=== PATIENT | male | born 1955 | race Caucasian/White ===

== ENCOUNTER → 2019-06-05 | Outpatient (CLI) | payer MEDICARE, OTHER ==
[~2019-06-05] MED LIST: BARIUM SULFATE 40% (APPLE) 148 GM PWD. PO ONE
--- NOTE | 2019-06-05 14:01 | RAD ---
VIDEO FLUOROSCOPIC SWALLOWING STUDY History: Dysphagia, oral pharyngeal phase. History of pneumonia. Total fluoroscopic time: 3.5 minutes seconds. Total fluoroscopic spot images: None saved. Findings: A video fluoroscopic swallowing study was performed with the speech pathologist present. Multiple episodes of deep transient laryngeal penetration with thin liquids was seen. One episode extended down to the cords but not below it. Therefore, no laryngeal aspiration was seen. No laryngeal residue was evident. Mild vallecular residue was evident but cleared with a subsequent swallow. Significant diffuse esophageal dysmotility was seen and therefore, the contrast bolus did not clear from the esophagus. There was one episode of esophageal dysmotility which resulted in reflux of the contrast bolus back up into the cervical esophagus just below the level of the larynx. This study was performed in the sitting upright position. Complete esophagram may be helpful for further evaluation. IMPRESSION: Transient laryngeal penetration without aspiration. Full report to follow by speech pathology. Significant esophageal dysmotility. Complete esophagram may be helpful for further evaluation. Electronically signed by: Sudhakar Gutierres MD (06/05/2019 1:58 PM) [facility]
== END | disposition home or self-care (01) ==
LOC: RAD 12:38
PROVIDERS: ATTEND Family Medicine
DX: K22.4 Dyskinesia of esophagus (principal); K21.9 Gastro-esophageal reflux disease without esophagitis
CPT/HCPCS: 74230; 92526; 92611